=== PATIENT | female | born 2000 | race Caucasian/White ===

== ENCOUNTER 2022-07-24 15:39 | Observation (INO) | payer BC ==
[~2022-07-24] VITALS: Ht 162.6 cm; Wt 54.5 kg
[~2022-07-24 15:39] MED LIST: MACROBID 1100 MG/CAP PO
[2022-07-24 17:15] LABS: HEMOGLOBIN 10.3 g/dl (12.0-15.0); MEAN CELL VOLUME 83 fl (80.0-95.0); MEAN CORPUSCULAR HEMOGLOBIN 28 pg (26-32); MEAN CORPUSCULAR HGB CONC 34 g/dl (33.0-37.0); MEAN PLATELET VOLUME 8.9 fl (7.4-10.4); PLATELET COUNT 451 K/mm3 (130-400); RED BLOOD COUNT 3.65 M/mm3 (4.10-5.30); REDCELL DISTRIBUTION WIDTH-CV 13.5 % (11.5-14.5)
[2022-07-24 17:18] LABS: HEMATOCRIT 30.4 % (35.0-45.0)
[2022-07-24 18:15] LABS: ALBUMIN 3.2 gm/dL (3.5-5.0); BILIRUBIN,TOTAL 0.9 mg/dL (0.2-1.2); CALCIUM 9.3 mg/dL (8.4-10.2); CREATININE, serum 0.75 mg/dL (0.57-1.11); TOTAL PROTEIN 7.7 gm/dL (6.2-8.1)
[2022-07-24 18:18] LABS: POTASSIUM 2.8 mmol/L (3.5-4.5)
[2022-07-24 18:19] LABS: BAND 6 % (0-10); LYMPHOCYTE 5 % (20.0-51.0); NEUTROPHILS 81 % (42.0-75.2)
[2022-07-24 18:20] LABS: PLATELET ESTIMATE INCREASED (NORMAL)
[2022-07-24 18:58] LABS: COLLECTION METHOD CLEAN CATCH
[2022-07-24 19:01] LABS: URINE APPEARANCE Cloudy (CLEAR/HAZY); URINE COLOR Yellow (YELLOW)
[2022-07-24 19:02] LABS: PH 5.5 (5.0-8.5); URINE BLOOD Negative (NEGATIVE); URINE GLUCOSE Negative (NEGATIVE); URINE KETONE 4+ (NEGATIVE); URINE NITRATE Negative (NEGATIVE); URINE PROTEIN(semi-quant) 1+ (NEGATIVE)
[2022-07-24 19:03] LABS: MUCOUS Present (NOT PRESENT); SQUAMOUS EPITHELIAL None Seen /hpf (0-10); URINE BACTERIA Rare /hpf (NONE SEEN); URINE RBC 0-2 /hpf (0-2)
--- NOTE | 2022-07-24 20:40 | NUR ---
Pt wheeled to 222 from ER. Pt's aunt at bedside. Pt ambulatory to bed standby assist. Alert and oriented. Pt oriented to room and plan of care discussed with pt and family. VS stable. Pt reports no pain at this time. States the tylenol that they gave down in the ER helped with her pain. Assessment and doppler completed.
[2022-07-24 20:45] VITALS: BP 103/60; PULSE 106; TEMP 98.1
[2022-07-24] MEDS ORDERED: PRENATAL MVI PO (20:56)
[2022-07-24 23:55] VITALS: BP 105/62; PULSE 106; TEMP 97.8
[2022-07-25 05:15] VITALS: BP 105/61; PULSE 115; TEMP 98.9
[2022-07-25 07:16] VITALS: BP 107/55; PULSE 119; TEMP 99.8
--- NOTE | 2022-07-25 09:55 | NUR ---
Several visit attempts: Patient and family resting. Lunch Truck Driver left card offering God's blessings and the availabilty of [facility] at our [facility].
[2022-07-25 11:45] VITALS: BP 85/35; PULSE 98; TEMP 98.1
[2022-07-25 16:00] VITALS: BP 104/59; PULSE 101; TEMP 98
[2022-07-25 20:00] VITALS: BP 97/46; PULSE 84; TEMP 97.7
[2022-07-25 23:52] VITALS: BP 106/54; PULSE 99; TEMP 98.6
[2022-07-26 04:00] VITALS: BP 95/40; PULSE 101; TEMP 99.6
--- NOTE | 2022-07-26 04:00 | NUR ---
0400 VS DONE. TEMP 99.6. C/O SOME CHEST DISCOMFORT WITH MOVEMENT. LUNGS AUSCULTATED AND CLEAR. HEART RATE 101 AND REGULAR. TYLENOL X2 PO GIVEN. UP TO BR ON OWN AND VOIDED. IV CONTS AT 125CC/HR PER PUMP.
[2022-07-26 07:22] VITALS: BP 93/41; PULSE 67; TEMP 97.5
[2022-07-26] MEDS ORDERED: MACROBID 1100 MG/CAP PO (09:26)
--- NOTE | 2022-07-26 10:20 | NUR ---
1020 - Discharge instructions reviewed with patient. Questions answered. IV d/c.
--- NOTE | 2022-07-26 11:00 | NUR ---
1100 - Patient ambulatory off unit accompanied by significant other.
== END 2022-07-26 11:00 | disposition home or self-care (01) ==
LOC: COL.ER 15:39 → OB 19:36
PROVIDERS: Physician Assistant; ADMIT Obstetrics & Gynecology
DX: O23.02 Infections of kidney in pregnancy, second trimester (principal); N12 Tubulo-interstitial nephritis, not specified as acute or chronic; Z3A.20 20 weeks gestation of pregnancy
CPT/HCPCS: J0696; J2405; J3480; J7030